=== PATIENT | female | born 2000 | race Hispanic/Latino ===

== ENCOUNTER → 2021-12-03 | Outpatient (CLI) | payer MEDICAID | END | disposition home or self-care (01) | LOC: SHCH 11:06 | PROVIDERS: ATTEND Student in an Organized Health Care Education/Training Program | DX: R00.2 Palpitations (principal) | CPT/HCPCS: 93306 ==

== ENCOUNTER 2024-03-02 18:25 | Emergency (ER) | payer OTHER, BC ==
[~2024-03-02] VITALS: Ht 152.4 cm; Wt 43.5 kg
[2024-03-02] MEDS ORDERED: CYCL5TAB3 PO (19:52)
[2024-03-02] MEDS ORDERED: NAPR-1174 PO (19:52)
--- NOTE | 2024-03-02 19:54 | ERN ---
ED Note History of Present Illness Stated Complaint: MECHANICAL FALL Chief Complaint: Other Problems Time Seen by MD: 19:05 Time Seen by Midlevel: 19:15 Dictation: Catherine Stark is a 23-year-old female with history of asthma who presented to the emergency department this evening for evaluation of rib pain. She states that last night while working at her job ([employer]) a case of chicken fell from a shelf striking her left lateral neck and left ankle. She fell onto the floor striking her right ribs. She reports feeling a achy and stiff. She denies having loss of consciousness. She denies having fever, chills, shortness of breath, cough, chest pain, palpitations, edema, pain, nausea vomiting, diarrhea, dysuria, headache, or dizziness. LMP: On menses. She has been applying [employer] which has helped some. Allergies: Coded Allergies: ibuprofen (Unverified Allergy, Unknown, 03/02/24) Past Medical History Past Medical History: Asthma Additional Past Medical Hx: HEART PALPITATIONS Surgical History: None PSYCH History: no pertinent psych hx Social History: Negative, Lives with family LMP: Mar 02, 2024 RN Note Reviewed/Agreed w/PFSH: Yes Review of System Dictation REVIEW OF SYSTEMS: CONSTITUTIONAL: Patient denies fevers, chills, sweats and weight changes. EYES: Patient denies any visual symptoms. EARS, NOSE, AND THROAT: No difficulties with hearing. No symptoms of rhinitis or sore throat. CARDIOVASCULAR: Patient denies chest pains, palpitations, orthopnea and paroxysmal nocturnal dyspnea. RESPIRATORY: No dyspnea on exertion, no wheezing or cough. Reports right rib pain GI: No nausea, vomiting, diarrhea, constipation, abdominal pain, hematochezia or melena. : No urinary hesitancy or dribbling. No nocturia or urinary frequency. No abn ormal urethral discharge. MUSCULOSKELETAL: Reports she feels achy and stiff. Reports right rib pain, left ankle pain, and left lateral neck pain. NEUROLOGIC: No chronic headaches, no seizures. Patient denies numbness, tingling or weakness. PSYCHIATRIC: Patient denies problems with mood disturbance. No problems with anxiety. ENDOCRINE: No excessive urination or excessive thirst. DERMATOLOGIC: Patient denies any rashes or skin changes. Initial Vital Sign VS Vital Signs Date Time Temp Pulse Resp B/P (MAP) Pulse Ox O2 Delivery O2 Flow Rate FiO2 03/02/24 18:45 98.2 76 16 113/75 96 Room Air Physical Exam Dictation Vital signs: Reviewed. Afebrile Constitutional: No acute distress. Non-toxic appearing. Head/Face: Normocephalic, atraumatic. Eyes: Periorbital areas with no swelling, redness, or edema. Lids and lashes are normal. Conjunctival injection is absent. Sclera anicteric. Pupils equal, round, reactive to light. ENT: Pinnas intact and no signs of trauma or erythema. Ear canals clear and no discharge. TMs no erythema. No nasal discharge or bleeding noted. Oropharynx with no exudate, redness, swelling, masses, exudates, or evidence of obstruction. Uvula midline. Mucous membranes moist. Neck: Trachea midline, no masses palpated, and no cervical lymphadenopathy. No swelling. Supple, full range of motion. Chest/Axilla: No tenderness, no crepitus, no paradoxical movement, no retractions. There is tenderness to right ribs. No visible bruising. Cardiovascular: Regular rate, regular rhythm, no murmur, no gallops. Symmetric pulses. No peripheral edema. Respiratory: Respirations even and unlabored. Lung sounds clear; no wheezes, rales or rhonchi. Room air SpO2 100% Gastrointestinal: Inspection is normal. No distention is appreciated. Bowel sounds are normal. No mass or organomegaly . There is no tenderness. No rebound. No rigidity. No voluntary or involuntary guarding. No Ledezma's sign. Neurological: Normal speech, gross motor function intact, gross sensory function intact. No focal weakness/Paresthesia. Rn Ent equal. Musculoskeletal/Extremities: All extremities have full range of motion, no pain or tenderness on palpation. Symmetric pulses. Full range of motion of the left ankle; able to bear weight. Reports slight tenderness upon palpation and small abrasion. Integumentary: Intact. Skin is normal color, warm and dry. Cap refill less than 3 seconds. ED Course ED Course Orders Procedure Category Date Status Time ,Urine Test LAB 03/02/24 Logged 19:06 Vital Signs Date Time Temp Pulse Resp B/P (MAP) Pulse Ox O2 Delivery O2 Flow Rate FiO2 03/02/24 18:45 98.2 76 16 113/75 96 Room Air Uneventful ED course. Vital signs remained stable. Room air SpO2 96-100%. Lung sounds are clear and equal. Moves all extremities equal and strong; range of motion intact. No focal weakness or paresthesia. Ambulating with steady gait. She does have right rib tenderness; no deformity. While in the emergency department she received doses Flexeril and Tylenol 3. Medical Decision Making MDM MDM: Differential diagnosis: Contusion, rib fracture, sprain Rationale: Tests considered and ordered secondary to shared decision making include: Previous outside records reviewed: Old ER visits. Risk of complication and/or morbidity or mortality of patient management: None Medications-Per medication reconciliation Need for hospitalization: Patient does not meet criteria for hospitalization. Need for emergency major/minor surgery: No There are no social concerns with this patient. Prescription drug management: Flexeril, ibuprofen Prescriptions will include symptomatic care Patient's prior external medical records from other ER visits were reviewed by me as indicated. Prior testing and results from previous visits were reviewed. Prior tests were taken into account with medical decision making and resource utilization, independent historian/historians were used to obtain complete medical history. I independently interpreted the test that were performed, results were reviewed by me and considered findings on radiology if ordered. Medical management and examination interpretation discussions were had by me with other qualified healthcare professionals as indicated for the patient's care. DX & DISP Disposition: Discharge Departure Impression: Primary Impression: Ankle sprain Additional Impressions: Neck muscle strain, Contusion, chest wall Condition: Stable Scripts Naproxen Sodium (Naproxen Sodium) 550 Mg Tablet 1 TAB PO [id number], #14 TAB 0 Refills Prov: ARCHIE ROMANO NP 03/02/24 Cyclobenzaprine HCl (Cyclobenzaprine HCl) 5 Mg Tablet 5 MG PO [id number] PRN for PAIN, #10 TAB 0 Refills Prov: ARCHIE ROMANO NP 03/02/24 Additional Instructions: Rest. Gentle stretching exercises. No work x2 days. Drink plenty of fluids. May take Flexeril every 12 hours as needed for muscle spasm. May take naproxen every 12 hours as needed for discomfort. Take medications with food. Avoid alcohol. Follow up with your primary care provider in the next week. Return to the emergency department for any worsening of symptoms or concerns. Referrals: SELF,REFERRAL (PCP) Time of Disposition: 19:53 ARCHIE ROMANO NP Mar 02, 2024 19:54
[2024-03-02] MEDS: CYCLOBENZAPRINE HCL 10 MG TABLET PO ONE (20:35)
[2024-03-02] MEDS: acetaMINOPHEN WITH coDEINE 1 TAB TAB PO ONE (20:35)
[2024-03-02 20:48] VITALS: BP 118/78; PULSE 72; RESP 16; TEMP 98.4; O2SAT 97
== END 2024-03-02 20:50 | disposition home or self-care (01) ==
LOC: EDH 18:25
DX: S16.1XXA Strain of muscle, fascia and tendon at neck level, initial encounter (principal); S20.219A Contusion of unspecified front wall of thorax, initial encounter; S93.492A Sprain of other ligament of left ankle, initial encounter; J45.909 Unspecified asthma, uncomplicated; Z88.6 Allergy status to analgesic agent; W17.89XA Other fall from one level to another, initial encounter; Y93.89 Activity, other specified; Y92.89 Other specified places as the place of occurrence of the external cause; Y99.8 Other external cause status
CPT/HCPCS: 99283